=== PATIENT | male | born 1990 | race African-American/Black ===

== ENCOUNTER 2018-12-11 09:05 | Inpatient (IN) | payer OTHER ==
[2018-12-11 09:25] VITALS: BMI 27.6
--- NOTE | 2018-12-11 09:43 | HP ---
CIWA Score Nausea/Vomitin Muscle Tremors: 2 Anxiety: 3 Agitation: 3 Paroxysmal Sweats: 1-Minimal Palms Moist Orientation: 0-Oriented Tacttile Disturbances: 1-Very Mild Itch/Numbness Auditory Disturbances: 0-None Visual Disturbances: 0-None Headache: 2-Mild CIWA-Ar Total Score: 14 - Admission Criteria OASAS Guidelines: Admission for Medically Managed Detox: Requires at least one of the followin. CIWA greater than 12 2. Seizures within the past 24 hours 3. Delirium tremens within the past 24 hours 4. Hallucinations within the past 24 hours 5. Acute intervention needed for co occurring medical disorder 6. Acute intervention needed for co occurring psychiatric disorder 7. Severe withdrawal that cannot be handled at a lower level of care (continued vomiting, continued diarrhea, abnormal vital signs) requiring intravenous medication and/or fluids 8. Admission ROS S - HPI Chief Complaint: i need help to stop drinking alcohol Allergies/Adverse Reactions: Allergies Allergy/AdvReac Type Severity Reaction Status Date / Time No Known Allergies Allergy Verified 12/11/18 09:13 History of Present Illness: this 28 years old male with alcohol dependence, seeking detox,withdrawal symptom seen in [facility] last night last detox in 2017 [facility] alcohol related seizure last 2 years ago syncope non smoker bipolar disorder no significant period of sobriety plan for out patient treatment,na or aa meeting after detox - Ebola screening Have you traveled outside of the country in the last 21 days: No (N) Have you had contact with anyone from an Ebola affected area: No Do you have a fever: No - Review of Systems Constitutional: Loss of Appetite, Night Sweats, Changes in sleep, Weakness EENT: reports: Nose Congestion Respiratory: reports: No Symptoms reported Cardiac: reports: No Symptoms Reported GI: reports: Nausea, Abdominal cramping : reports: No Symptoms Reported Musculoskeletal: reports: Back Pain, Muscle Pain Integumentary: reports: Dryness Neuro: reports: Headache, Tremors Endocrine: reports: No Symptoms Reported Hematology: reports: No Symptoms Reported Psychiatric: reports: No Sypmtoms Reported, Judgement Intact, Mood/Affect Appropiate, Orientated x3, other (bipolar disorder) Patient History - Patient Medical History Hx Anemia: No Hx Asthma: No Hx Chronic Obstructive Pulmonary Disease (COPD): No Hx Cancer: No Hx Cardiac Disorders: No Hx Congestive Heart Failure: No Hx Hypertension: No Hx Hypercholesterolemia: No Hx Pacemaker: No HX Cerebrovascular Accident: No Hx Seizures: Yes (last 2016) Hx Dementia: No Hx Diabetes: No Hx Gastrointestinal Disorders: No Hx Liver Disease: No Hx Genitourinary Disorders: No Hx Sexually Transmitted Disorders: No Hx Renal Disease (ESRD): No Hx Thyroid Disease: No Hx Human Immunodeficiency Virus (HIV): No (never been tested,would like to have test done) Hx Hepatitis C: No Hx Depression: No Hx Suicide Attempt: Yes (drinke bleach at age [age] years old) Hx Bipolar Disorder: Yes (on med) Hx Schizophrenia: No Other Medical History: no suicidal,no homicidal - Patient Surgical History Hx Abdominal Surgery: Yes (umbilical hernia at childhood) - PPD History Previous Implant?: Yes Documented Results: Negative w/o proof Implanted On Prior R Admission?: No PPD to be Administered?: No - Smoking Cessation Smoking history: Never smoked - Substance & Tx. History Hx Alcohol Use: Yes Substance Use Type: Alcohol Hx Substance Use Treatment: Yes ([facility]) - Substances abused Alcohol Substance route: Oral Frequency: Daily Amount used: 1 PINT [employer] [place] VODKA Age of first use: 12 Date of last use: 12/10/18 Family Disease History - Family Disease History Family History: Denies Admission Physical Exam S - Vital Signs Vital Signs: Vital Signs - 24 hr 12/11/18 09:17 Temperature 97.6 F Pulse Rate 66 Respiratory 17 Rate Blood Pressure 133/89 - Physical General Appearance: Yes: Moderate Distress, Tremorous, Irritable, Sweating, Anxious HEENTM: Yes: Normal ENT Inspection, JAN, Pharynx Normal Respiratory: Yes: Lungs Clear, Normal Breath Sounds, No Respiratory Distress Neck: Yes: Within Normal Limits, Supple, Trachea in good position Breast: Yes: Within Normal Limits Cardiology: Yes: Within Normal Limits, Regular Rhythm, Regular Rate, S1, S2 Abdominal: Yes: Within Normal Limits, Normal Bowel Sounds, Non Tender, Flat, Soft, Surgical Scar (history of umbilical hernia repair) Genitourinary: Yes: Within Normal Limits Back: Yes: Muscle Spasm Musculoskeletal: Yes: Back pain, Muscle Pain Extremities: Yes: Tremors 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: 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: 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, Fully Oriented, Alert, Motor Strength 5/5 Integumentary: Yes: Within Normal Limits, Dry Lymphatic: Yes: Within Normal Limits - Diagnostic (1) Alcohol dependence with uncomplicated withdrawal Current Visit: Yes Status: Acute (2) Alcohol related seizure Current Visit: Yes Status: Resolved (3) Syncope Current Visit: Yes Status: Acute (4) Bipolar disorder Current Visit: Yes Status: Chronic Cleared for Admission [facility] - Detox or Rehab [facility] Level of Care: Medically Managed Detox Regimen/Protocol: Librium Inpatient Rehab Admission - Rehab Decision to Admit Inpatient rehab admission?: No
[2018-12-11] MEDS ORDERED: MAG HYDROX/AL HYDROX/SIMETH 30 ML UNIT-DOSE CUP PO PRN (09:55)
[2018-12-11] MEDS ORDERED: ACETAMINOPHEN 325 MG TABLET (FP) PO PRN ×2 (09:55)
[2018-12-11] MEDS ORDERED: hydrOXYzine PAMOATE 25 MG CAPSULE (FP) PO PRN (09:55)
[2018-12-11] MEDS ORDERED: chlordiazePOXIDE HCL 25 MG CAPSULE PO PRN (09:55)
[2018-12-11] MEDS ORDERED: IBUPROFEN 400 MG TABLET (FP) PO PRN (09:55)
[2018-12-11] MEDS ORDERED: BISMUTH SUBSALICYLATE 524 MG/30 ML UD PO PRN (09:55)
[2018-12-11] MEDS ORDERED: MAGNESIUM CITRATE 300 ML BOTTLE PO PRN (10:46)
[2018-12-11] MEDS ORDERED: MENTHOL/PHENOL 1 EACH UD MM PRN (10:46)
[2018-12-11] MEDS ORDERED: METHOCARBAMOL 500 MG TABLET PO PRN (10:46)
[2018-12-11] MEDS ORDERED: MAGNESIUM HYDROX 2400MG/30ML ORAL SUSPENSION 30 ML CUP PO PRN (10:46)
[2018-12-11] MEDS: PRENATAL VITAMINS W/ FOLIC ACID TABLET (FP) PO SCH (11:30)
[2018-12-11] MEDS: chlordiazePOXIDE HCL 25 MG CAPSULE PO SCH ×2 (17:23→22:16)
[2018-12-11] MEDS: MELATONIN 5 MG TABLETS PO PRN (22:16)
[2018-12-11] MEDS: THIAMINE HCL 100 MG TABLET (FP) PO SCH (22:17)
[2018-12-12] MEDS: chlordiazePOXIDE HCL 25 MG CAPSULE PO SCH ×4 (06:25→22:07)
--- NOTE | 2018-12-12 09:08 | EKG ---
Test Reason : Blood Pressure : / mmHG Vent. Rate : 051 BPM Atrial Rate : 051 BPM P-R Int : 194 ms QRS Dur : 106 ms QT Int : 406 ms P-R-T Axes : 066 076 070 degrees QTc Int : 374 ms SINUS BRADYCARDIA WITH PREMATURE ATRIAL COMPLEXES ST ELEVATION, CONSIDER EARLY REPOLARIZATION, PERICARDITIS, OR INJURY ABNORMAL ECG NO PREVIOUS ECGS AVAILABLE Confirmed by COREY SON, YUDI ([id number]) on 12/12/2018 9:07:57 AM Referred By: Bree Villatoro Confirmed By:YUDI NICOLE MD
[2018-12-12 09:47] LABS: ALBUMIN 3.4 g/dl (3.4-5.0); BILIRUBIN,TOTAL 0.3 mg/dL (0.2-1); BLOOD UREA NITROGEN 11.8 mg/dL (7-18); CREATININE 0.7 mg/dL (0.55-1.3); POTASSIUM 4.5 mmol/L (3.5-5.1); TOT PROT 7.2 g/dl (6.4-8.2)
--- NOTE | 2018-12-12 09:50 | CONSULT ---
[facility] Psychiatric Consult - Data Date of interview: 12/12/18 Admission source: [facility] Identifying data: Mr Ramirez is a 28 years old single Black male, unemployed receiving SSI, living with family seeking detox treatment for alcohol Substance Abuse History: Reports history of alcohol use. Refer to addiction counselor's summary for further information Medical History: Significant for alcoho related seizure. Psychiatric History: Reports that his first psychiatric contact was at age 16 when [facility] by drinking bleach. Reports that he was diagnosed with Bipolar Disorder and prescribed medications. Reports a few subsequent admissions to [facility] and most recently to [facility] from 11/21/18 to . He was discharged on Depakote 500 mg/bid and Cogentin 1 mg/bid. Claims that he was administered Haldol Decanoate injection while there but does not know the strengh. According to sister whom caption writer contacted with patient's consent( [phone], he receives outpatient psychiatric treatment at [facility] and he gets Haldol Decanoate injection there. 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 Reports several suicidal attempts. At present, denies experiencing psychotic, manic or depressive symptoms, S/H ideations. Physical/Sexual Abuse/Trauma History: Denies history of emotional, physical or sexual abuse as well as DV relationship. Additional Comment: Denies criminal history Mental Status Exam - Mental Status Exam Alert and Oriented to: Time, Place, Person Cognitive Function: Fair Patient Appearance: Disheveled Mood: Hopeful, Euthymic Patient Behavior: Cooperative Speech Pattern: Clear Voice Loudness: Normal Thought Process: Intact, Goal Oriented Hallucinations: Denies Suicidal Ideation: Denies Homicidal Ideation: Denies Insight/Judgement: Poor Sleep: Well Appetite: Good Muscle strength/Tone: Normal Gait/Station: Normal Psychiatric Findings - Problem List ([place] 1, 2,3) (1) Bipolar disorder Current Visit: Yes Status: Chronic (2) Intellectual disability Current Visit: Yes Status: Chronic (3) Alcohol dependence with uncomplicated withdrawal Current Visit: Yes Status: Acute (4) Alcohol related seizure Current Visit: Yes Status: Resolved - Initial Treatment Plan Initial Treatment Plan: 1) Continue Depakote 500 mg po BID and Cogentin 1 mg po BID. 2) Continue inpatient detoxification
[2018-12-12 09:53] LABS: HEMATOCRIT 43.6 % (35.4-49); HEMOGLOBIN 14.4 GM/dL (11.7-16.9); MCH 30.8 pg (25.7-33.7); MEAN CELL VOLUME 93.5 fl (80-96); MEAN PLT VOLUME 7.7 fl (7.5-11.1); PLATELET COUNT 282 K/MM3 (134-434); RBC 4.66 M/mm3 (4.00-5.60); RDW 13.6 % (11.9-15.9); WHITE BLOOD COUNT 4.5 K/mm3 (4.0-10.0)
[2018-12-12] MEDS: PRENATAL VITAMINS W/ FOLIC ACID TABLET (FP) PO SCH (10:14)
[2018-12-12 10:20] LABS: SICKLE CELL SCREEN NEGATIVE (NEGATIVE)
--- NOTE | 2018-12-12 12:46 | PN ---
S CIWA - CIWA Score Nausea/Vomitin-Mild Nausea/No Vomiting Muscle Tremors: 4-Moderate,w/Arms Extend Anxiety: 2 Agitation: 3 Paroxysmal Sweats: 1-Minimal Palms Moist Orientation: 0-Oriented Tacttile Disturbances: 0-None Auditory Disturbances: 0-None Visual Disturbances: 0-None Headache: 1-Very Mild CIWA-Ar Total Score: 12 BHS Progress Note (SOAP) Subjective: 28 years old male admitted on 12/11/18 for alcohol withdrawal sx management doing well with libirum detox regimen seen by psychiatrist tiffanie andrade feeling tired resting on bed Objective: 12/12/18 12:44 Vital Signs Temperature 97.7 F 12/12/18 09:12 Pulse Rate 93 H 12/12/18 09:12 Respiratory Rate 18 12/12/18 09:12 Blood Pressure 128/92 12/12/18 09:12 O2 Sat by Pulse Oximetry (%) Laboratory Last Values WBC 4.5 K/mm3 (4.0-10.0) 12/12/18 07:30 RBC 4.66 M/mm3 (4.00-5.60) 12/12/18 07:30 Hgb 14.4 GM/dL (11.7-16.9) 12/12/18 07:30 Hct 43.6 % (35.4-49) 12/12/18 07:30 MCV 93.5 fl (80-96) 12/12/18 07:30 MCH 30.8 pg (25.7-33.7) 12/12/18 07:30 MCHC 33.0 g/dl (32.0-35.9) 12/12/18 07:30 RDW 13.6 % (11.9-15.9) 12/12/18 07:30 Plt Count 282 K/MM3 (134-434) 12/12/18 07:30 MPV 7.7 fl (7.5-11.1) 12/12/18 07:30 Sickle Cell Screen Negative (NEGATIVE) 12/12/18 07:30 Sodium 139 mmol/L (136-145) 12/12/18 07:30 Potassium 4.5 mmol/L (3.5-5.1) 12/12/18 07:30 Chloride 106 mmol/L (98-107) 12/12/18 07:30 Carbon Dioxide 28 mmol/L (21-32) 12/12/18 07:30 Anion Gap 5 MMOL/L (8-16) L 12/12/18 07:30 BUN 11.8 mg/dL (7-18) 12/12/18 07:30 Creatinine 0.7 mg/dL (0.55-1.3) 12/12/18 07:30 Est GFR (CKD-EPI)AfAm 146.77 12/12/18 07:30 Est GFR (CKD-EPI)NonAf 126.64 12/12/18 07:30 Random Glucose 78 mg/dL (74-106) 12/12/18 07:30 Calcium 9.0 mg/dL (8.5-10.1) 12/12/18 07:30 Total Bilirubin 0.3 mg/dL (0.2-1) 12/12/18 07:30 AST 17 U/L (15-37) 12/12/18 07:30 ALT 20 U/L (13-61) 12/12/18 07:30 Alkaline Phosphatase 69 U/L (45-117) 12/12/18 07:30 Total Protein 7.2 g/dl (6.4-8.2) 12/12/18 07:30 Albumin 3.4 g/dl (3.4-5.0) 12/12/18 07:30 RPR Titer Nonreactive (NONREACTIVE) 12/12/18 07:30 HIV 1&2 Antibody Screen Cancelled 12/12/18 07:30 HIV P24 Antigen Cancelled 12/12/18 07:30 lab noted Assessment: 12/12/18 12:45 alcohol withdrawal sx alert oriented x 3 Plan: continue librium detox regimen
[2018-12-12 19:32] LABS: URINE APPEARANCE CLEAR; URINE BILIRUBIN NEGATIVE (NEGATIVE); URINE COLOR YELLOW; URINE GLUCOSE (UA) NEGATIVE (NEGATIVE); URINE KETONE NEGATIVE (NEGATIVE); URINE LEUK ESTERASE NEGATIVE (NEGATIVE); URINE NITRITE NEGATIVE (NEGATIVE); URINE PROTEIN NEGATIVE (NEGATIVE); URINE UROBILINOGEN 0.2 mg/dL (0.2-1.0)
[2018-12-12] MEDS: THIAMINE HCL 100 MG TABLET (FP) PO SCH (22:07)
[2018-12-12] MEDS: MELATONIN 5 MG TABLETS PO PRN (22:08)
[2018-12-13] MEDS: chlordiazePOXIDE HCL 25 MG CAPSULE PO SCH ×4 (05:37→22:13)
[2018-12-13] MEDS: PRENATAL VITAMINS W/ FOLIC ACID TABLET (FP) PO SCH (10:18)
--- NOTE | 2018-12-13 13:32 | PN ---
[facility] CIWA - CIWA Score Nausea/Vomitin-No Nausea/No Vomiting Muscle Tremors: 2 Anxiety: 3 Agitation: 2 Paroxysmal Sweats: 2 Orientation: 0-Oriented Tacttile Disturbances: 0-None Auditory Disturbances: 0-None Visual Disturbances: 0-None Headache: 0-None Present CIWA-Ar Total Score: 9 S Progress Note (SOAP) Subjective: 28 years old male 1st patient [facility] admission was admitted on 12/11/18 for alcohol withdrawal sx management doing well with librium detox regimen speech clearly ambulating steady gait Objective: 12/13/18 13:34 Vital Signs Temperature 97.2 F L 12/13/18 13:28 Pulse Rate 86 12/13/18 13:28 Respiratory Rate 18 12/13/18 13:28 Blood Pressure 106/77 12/13/18 13:28 O2 Sat by Pulse Oximetry (%) Laboratory Last Values WBC 4.5 K/mm3 (4.0-10.0) 12/12/18 07:30 RBC 4.66 M/mm3 (4.00-5.60) 12/12/18 07:30 Hgb 14.4 GM/dL (11.7-16.9) 12/12/18 07:30 Hct 43.6 % (35.4-49) 12/12/18 07:30 MCV 93.5 fl (80-96) 12/12/18 07:30 MCH 30.8 pg (25.7-33.7) 12/12/18 07:30 MCHC 33.0 g/dl (32.0-35.9) 12/12/18 07:30 RDW 13.6 % (11.9-15.9) 12/12/18 07:30 Plt Count 282 K/MM3 (134-434) 12/12/18 07:30 MPV 7.7 fl (7.5-11.1) 12/12/18 07:30 Sickle Cell Screen Negative (NEGATIVE) 12/12/18 07:30 Sodium 139 mmol/L (136-145) 12/12/18 07:30 Potassium 4.5 mmol/L (3.5-5.1) 12/12/18 07:30 Chloride 106 mmol/L (98-107) 12/12/18 07:30 Carbon Dioxide 28 mmol/L (21-32) 12/12/18 07:30 Anion Gap 5 MMOL/L (8-16) L 12/12/18 07:30 BUN 11.8 mg/dL (7-18) 12/12/18 07:30 Creatinine 0.7 mg/dL (0.55-1.3) 12/12/18 07:30 Est GFR (CKD-EPI)AfAm 146.77 12/12/18 07:30 Est GFR (CKD-EPI)NonAf 126.64 12/12/18 07:30 Random Glucose 78 mg/dL (74-106) 12/12/18 07:30 Calcium 9.0 mg/dL (8.5-10.1) 12/12/18 07:30 Total Bilirubin 0.3 mg/dL (0.2-1) 12/12/18 07:30 AST 17 U/L (15-37) 12/12/18 07:30 ALT 20 U/L (13-61) 12/12/18 07:30 Alkaline Phosphatase 69 U/L (45-117) 12/12/18 07:30 Total Protein 7.2 g/dl (6.4-8.2) 12/12/18 07:30 Albumin 3.4 g/dl (3.4-5.0) 12/12/18 07:30 Urine Color Yellow 12/12/18 08:28 Urine Appearance Clear 12/12/18 08:28 Urine pH 6.0 (5.0-8.0) 12/12/18 08:28 Ur Specific [place] 1.007 (1.010-1.035) L 12/12/18 08:28 Urine Protein Negative (NEGATIVE) 12/12/18 08:28 Urine Glucose (UA) Negative (NEGATIVE) 12/12/18 08:28 Urine Ketones Negative (NEGATIVE) 12/12/18 08:28 Urine Blood Negative (NEGATIVE) 12/12/18 08:28 Urine Nitrite Negative (NEGATIVE) 12/12/18 08:28 Urine Bilirubin Negative (NEGATIVE) 12/12/18 08:28 Urine Urobilinogen 0.2 mg/dL (0.2-1.0) 12/12/18 08:28 Ur Leukocyte Esterase Negative (NEGATIVE) 12/12/18 08:28 RPR Titer Nonreactive (NONREACTIVE) 12/12/18 07:30 HIV 1&2 Antibody Screen Cancelled 12/12/18 07:30 HIV P24 Antigen Cancelled 12/12/18 07:30 lab noted Assessment: 12/13/18 13:35 alcohol withdrawal sx 12/13/18 13:40 premature atrial complex repeat ekg on 12/15/18 12/13/18 13:41 no comparison negative urine toxicity upon admission Plan: continue librum detox regimen
[2018-12-13] MEDS: DIVALPROEX SODIUM 500 MG TABLET E.C. PO SCH (22:12)
[2018-12-13] MEDS: BENZTROPINE MESYLATE 1 MG TABLET (FP) PO SCH (22:12)
[2018-12-13] MEDS: THIAMINE HCL 100 MG TABLET (FP) PO SCH (22:12)
[2018-12-13] MEDS: MELATONIN 5 MG TABLETS PO PRN (22:13)
[2018-12-14] MEDS ORDERED: chlordiazePOXIDE HCL 10 MG CAPSULE PO PRN
[2018-12-14] MEDS: chlordiazePOXIDE HCL 10 MG CAPSULE PO SCH ×4 (05:39→22:18)
[2018-12-14] MEDS: DIVALPROEX SODIUM 500 MG TABLET E.C. PO SCH ×2 (10:23→22:18)
[2018-12-14] MEDS: PRENATAL VITAMINS W/ FOLIC ACID TABLET (FP) PO SCH (10:23)
[2018-12-14] MEDS: BENZTROPINE MESYLATE 1 MG TABLET (FP) PO SCH ×2 (10:23→22:18)
--- NOTE | 2018-12-14 10:32 | PN ---
S CIWA - CIWA Score Nausea/Vomitin-No Nausea/No Vomiting Muscle Tremors: 2 Anxiety: 2 Agitation: 2 Paroxysmal Sweats: No Perspiration Orientation: 0-Oriented Tacttile Disturbances: 0-None Auditory Disturbances: 0-None Visual Disturbances: 0-None Headache: 0-None Present CIWA-Ar Total Score: 6 S Progress Note (SOAP) Subjective: doing well with librium detox regimen ambulating on hallway social with peers in day room discuss aftercare with staff prefers [facility] for alcohol sobriety recovery Objective: 12/14/18 10:32 Vital Signs Temperature 98.3 F 12/14/18 09:07 Pulse Rate 73 12/14/18 09:07 Respiratory Rate 18 12/14/18 09:07 Blood Pressure 114/76 12/14/18 09:07 O2 Sat by Pulse Oximetry (%) Laboratory Last Values WBC 4.5 K/mm3 (4.0-10.0) 12/12/18 07:30 RBC 4.66 M/mm3 (4.00-5.60) 12/12/18 07:30 Hgb 14.4 GM/dL (11.7-16.9) 12/12/18 07:30 Hct 43.6 % (35.4-49) 12/12/18 07:30 MCV 93.5 fl (80-96) 12/12/18 07:30 MCH 30.8 pg (25.7-33.7) 12/12/18 07:30 MCHC 33.0 g/dl (32.0-35.9) 12/12/18 07:30 RDW 13.6 % (11.9-15.9) 12/12/18 07:30 Plt Count 282 K/MM3 (134-434) 12/12/18 07:30 MPV 7.7 fl (7.5-11.1) 12/12/18 07:30 Sickle Cell Screen Negative (NEGATIVE) 12/12/18 07:30 Sodium 139 mmol/L (136-145) 12/12/18 07:30 Potassium 4.5 mmol/L (3.5-5.1) 12/12/18 07:30 Chloride 106 mmol/L (98-107) 12/12/18 07:30 Carbon Dioxide 28 mmol/L (21-32) 12/12/18 07:30 Anion Gap 5 MMOL/L (8-16) L 12/12/18 07:30 BUN 11.8 mg/dL (7-18) 12/12/18 07:30 Creatinine 0.7 mg/dL (0.55-1.3) 12/12/18 07:30 Est GFR (CKD-EPI)AfAm 146.77 12/12/18 07:30 Est GFR (CKD-EPI)NonAf 126.64 12/12/18 07:30 Random Glucose 78 mg/dL (74-106) 12/12/18 07:30 Calcium 9.0 mg/dL (8.5-10.1) 12/12/18 07:30 Total Bilirubin 0.3 mg/dL (0.2-1) 12/12/18 07:30 AST 17 U/L (15-37) 12/12/18 07:30 ALT 20 U/L (13-61) 12/12/18 07:30 Alkaline Phosphatase 69 U/L (45-117) 12/12/18 07:30 Total Protein 7.2 g/dl (6.4-8.2) 12/12/18 07:30 Albumin 3.4 g/dl (3.4-5.0) 12/12/18 07:30 Urine Color Yellow 12/12/18 08:28 Urine Appearance Clear 12/12/18 08:28 Urine pH 6.0 (5.0-8.0) 12/12/18 08:28 Ur Specific [place] 1.007 (1.010-1.035) L 12/12/18 08:28 Urine Protein Negative (NEGATIVE) 12/12/18 08:28 Urine Glucose (UA) Negative (NEGATIVE) 12/12/18 08:28 Urine Ketones Negative (NEGATIVE) 12/12/18 08:28 Urine Blood Negative (NEGATIVE) 12/12/18 08:28 Urine Nitrite Negative (NEGATIVE) 12/12/18 08:28 Urine Bilirubin Negative (NEGATIVE) 12/12/18 08:28 Urine Urobilinogen 0.2 mg/dL (0.2-1.0) 12/12/18 08:28 Ur Leukocyte Esterase Negative (NEGATIVE) 12/12/18 08:28 RPR Titer Nonreactive (NONREACTIVE) 12/12/18 07:30 HIV 1&2 Antibody Screen Cancelled 12/12/18 07:30 HIV P24 Antigen Cancelled 12/12/18 07:30 lab noted Assessment: 12/14/18 10:33 alcohol withdrawal sx alert oriented x 3 12/14/18 10:33 no chest pain no shortness of breath no dizziness asymptomatic premature atrial beats apical pulse 73 above bradycardia region Vital Signs Temperature 98.3 F 12/14/18 09:07 Pulse Rate 73 12/14/18 09:07 Respiratory Rate 18 12/14/18 09:07 Blood Pressure 114/76 12/14/18 09:07 O2 Sat by Pulse Oximetry (%) 12/14/18 10:35 Plan: continue librium detox regimen
[2018-12-14] MEDS: MELATONIN 5 MG TABLETS PO PRN (22:18)
[2018-12-14] MEDS: THIAMINE HCL 100 MG TABLET (FP) PO SCH (22:18)
[2018-12-15] MEDS: chlordiazePOXIDE HCL 10 MG CAPSULE PO SCH ×2 (04:58→17:15)
[2018-12-15] MEDS: BENZTROPINE MESYLATE 1 MG TABLET (FP) PO SCH ×2 (10:10→22:19)
[2018-12-15] MEDS: DIVALPROEX SODIUM 500 MG TABLET E.C. PO SCH ×2 (10:10→22:19)
[2018-12-15] MEDS: PRENATAL VITAMINS W/ FOLIC ACID TABLET (FP) PO SCH (10:10)
--- NOTE | 2018-12-15 12:29 | EKG ---
Test Reason : Blood Pressure : / mmHG Vent. Rate : 075 BPM Atrial Rate : 075 BPM P-R Int : 184 ms QRS Dur : 098 ms QT Int : 360 ms P-R-T Axes : 058 068 058 degrees QTc Int : 402 ms NORMAL SINUS RHYTHM ST ELEVATION, CONSIDER EARLY REPOLARIZATION, PERICARDITIS, OR INJURY ABNORMAL ECG Confirmed by KEREN SON, MARY ([id number]) on 12/15/2018 12:29:23 PM Referred By: Bree Villatoro Confirmed By:MARY VELIZ MD
--- NOTE | 2018-12-15 16:16 | PN ---
S CIWA - CIWA Score Nausea/Vomitin-No Nausea/No Vomiting Muscle Tremors: 2 Anxiety: 2 Agitation: 3 Paroxysmal Sweats: No Perspiration Orientation: 0-Oriented Tacttile Disturbances: 0-None Auditory Disturbances: 0-None Visual Disturbances: 0-None Headache: 0-None Present CIWA-Ar Total Score: 7 BHS Progress Note (SOAP) Subjective: Anxious, Restless, Tremors (Mild). Objective: PATIENT A & O X 3, OBSERVED AMBULATING ON UNIT UNASSISTED. IN NO ACUTE DISTRESS. 12/15/18 16:11 Vital Signs Temperature 96.5 F L 12/15/18 13:43 Pulse Rate 79 12/15/18 13:43 Respiratory Rate 18 12/15/18 13:43 Blood Pressure 128/83 12/15/18 13:43 O2 Sat by Pulse Oximetry (%) Laboratory Tests 12/12/18 12/12/18 12/12/18 07:30 07:30 07:30 WBC 4.5 RBC 4.66 Hgb 14.4 Hct 43.6 MCV 93.5 MCH 30.8 MCHC 33.0 RDW 13.6 Plt Count 282 MPV 7.7 Sickle Cell Screen Negative Sodium 139 Potassium 4.5 Chloride 106 Carbon Dioxide 28 Anion Gap 5 L BUN 11.8 Creatinine 0.7 Est GFR (CKD-EPI)AfAm 146.77 Est GFR (CKD-EPI)NonAf 126.64 Random Glucose 78 Calcium 9.0 Total Bilirubin 0.3 AST 17 ALT 20 Alkaline Phosphatase 69 Total Protein 7.2 Albumin 3.4 Urine Color Urine Appearance Urine pH Ur Specific [place] Urine Protein Urine Glucose (UA) Urine Ketones Urine Blood Urine Nitrite Urine Bilirubin Urine Urobilinogen Ur Leukocyte Esterase RPR Titer Nonreactive HIV 1&2 Antibody Screen HIV P24 Antigen TB (QFT) Incubation TB Test (QFT) Nil TB Test (QFT) Mitogen TB Test (QFT) Antigen TB Test (QFT) TB Positive Criteria 12/12/18 12/12/18 12/12/18 07:30 07:30 08:28 WBC RBC Hgb Hct MCV MCH MCHC RDW Plt Count MPV Sickle Cell Screen Sodium Potassium Chloride Carbon Dioxide Anion Gap BUN Creatinine Est GFR (CKD-EPI)AfAm Est GFR (CKD-EPI)NonAf Random Glucose Calcium Total Bilirubin AST ALT Alkaline Phosphatase Total Protein Albumin Urine Color Yellow Urine Appearance Clear Urine pH 6.0 Ur Specific [place] 1.007 L Urine Protein Negative Urine Glucose (UA) Negative Urine Ketones Negative Urine Blood Negative Urine Nitrite Negative Urine Bilirubin Negative Urine Urobilinogen 0.2 Ur Leukocyte Esterase Negative RPR Titer HIV 1&2 Antibody Screen Cancelled HIV P24 Antigen Cancelled TB (QFT) Incubation TB Test (QFT) Nil 0.19 TB Test (QFT) Mitogen >10.00 TB Test (QFT) Antigen 0.20 TB Test (QFT) Negative TB Positive Criteria LABS NOTED. DETOX ADMISSION HIV AB RESULT PENDING. 12/15/18 16:12 Assessment: 12/15/18 16:11 WITHDRAWAL SYMPTOMS. Plan: CONTINUE DETOX. PATIENT SCHEDULED FROM DISCHARGE FROM DETOX UNIT TOMORROW AM. RESULTS OF DETOX ADMISSION AND REPEAT ECG (AFTER VERIFICATION BY BASKET PERSON) NOTED. PATIENT DENIES KNOWN HISTORY OF CARDIOVASCULAR DISORDER. PATIENT DENIES CHEST / LEFT ARM PAIN, DIZZINESS, AND SOB AT THIS TIME. PATIENT ADVISED TO FOLLOW-UP WITH SECURITY MONITOR SOON POSSIBLE AFTER DISCHARGE FROM DETOX FOR GENERAL MEDICAL ASSESSMENT AND FOR DETOX ADMISSION AND REPEAT ECG ABNORMALITIES NOTED WHILE PATIENT WAS ADMITTED FOR DETOX. PATIENT VERBALIZED UNDERSTANDING OF RECOMMENDATION.
[2018-12-15] MEDS: THIAMINE HCL 100 MG TABLET (FP) PO SCH (22:19)
[2018-12-15] MEDS: MELATONIN 5 MG TABLETS PO PRN (22:19)
[2018-12-16] MEDS ORDERED: chlordiazePOXIDE HCL 10 MG CAPSULE PO ONE (05:00)
[2018-12-16] MEDS: BENZTROPINE MESYLATE 1 MG TABLET (FP) PO SCH (10:29)
[2018-12-16] MEDS: PRENATAL VITAMINS W/ FOLIC ACID TABLET (FP) PO SCH (10:29)
[2018-12-16] MEDS: DIVALPROEX SODIUM 500 MG TABLET E.C. PO SCH (10:29)
[2018-12-16 13:38] VITALS: BP 133/85; PULSE 66; TEMP 97.6
--- NOTE | 2018-12-16 15:06 | DS ---
[facility] Detox Discharge Summary Admission Date: 12/11/18 Discharge Date: 12/16/18 - History Present History: Alcohol Dependence Additional Comments: PATIENT GOING TO [facility] ([facility] FOR AFTERCARE. PATIENT WAS DISCHARGED FROM DETOX UNIT TO BE TAKEN OVER TO REHAB UNIT IN STABLE MEDICAL CONDITION. Pertinent Past History: History Of Alcohol-Related Seizure, History Of Syncope, History Of Bipolar Disorder. - Physical Exam Results Vital Signs: Vital Signs Temperature 97.6 F 12/16/18 13:37 Pulse Rate 66 12/16/18 13:37 Respiratory Rate 16 12/16/18 13:37 Blood Pressure 133/85 12/16/18 13:37 O2 Sat by Pulse Oximetry (%) Pertinent Admission Physical Exam Findings: WITHDRAWAL SYMPTOMS. Laboratory Tests 12/12/18 12/12/18 12/12/18 07:30 07:30 07:30 WBC 4.5 RBC 4.66 Hgb 14.4 Hct 43.6 MCV 93.5 MCH 30.8 MCHC 33.0 RDW 13.6 Plt Count 282 MPV 7.7 Sickle Cell Screen Negative Sodium 139 Potassium 4.5 Chloride 106 Carbon Dioxide 28 Anion Gap 5 L BUN 11.8 Creatinine 0.7 Est GFR (CKD-EPI)AfAm 146.77 Est GFR (CKD-EPI)NonAf 126.64 Random Glucose 78 Calcium 9.0 Total Bilirubin 0.3 AST 17 ALT 20 Alkaline Phosphatase 69 Total Protein 7.2 Albumin 3.4 Urine Color Urine Appearance Urine pH Ur Specific [place] Urine Protein Urine Glucose (UA) Urine Ketones Urine Blood Urine Nitrite Urine Bilirubin Urine Urobilinogen Ur Leukocyte Esterase RPR Titer Nonreactive HIV 1&2 Antibody Screen HIV P24 Antigen TB (QFT) Incubation TB Test (QFT) Nil TB Test (QFT) Mitogen TB Test (QFT) Antigen TB Test (QFT) TB Positive Criteria 12/12/18 12/12/18 12/12/18 07:30 07:30 08:28 WBC RBC Hgb Hct MCV MCH MCHC RDW Plt Count MPV Sickle Cell Screen Sodium Potassium Chloride Carbon Dioxide Anion Gap BUN Creatinine Est GFR (CKD-EPI)AfAm Est GFR (CKD-EPI)NonAf Random Glucose Calcium Total Bilirubin AST ALT Alkaline Phosphatase Total Protein Albumin Urine Color Yellow Urine Appearance Clear Urine pH 6.0 Ur Specific [place] 1.007 L Urine Protein Negative Urine Glucose (UA) Negative Urine Ketones Negative Urine Blood Negative Urine Nitrite Negative Urine Bilirubin Negative Urine Urobilinogen 0.2 Ur Leukocyte Esterase Negative RPR Titer HIV 1&2 Antibody Screen Cancelled HIV P24 Antigen Cancelled TB (QFT) Incubation TB Test (QFT) Nil 0.19 TB Test (QFT) Mitogen >10.00 TB Test (QFT) Antigen 0.20 TB Test (QFT) Negative TB Positive Criteria LABS NOTED. - Treatment Hospital Course: Detox Protocol Followed, Detoxed Safely, Responded well, Discharged Condition Good, Rehab Referral Accepted Patient has Accepted a Re[facility] Referral to: [facility] ([place], [place]). - Medication Discharge Medications: Ambulatory Orders Divalproex [Depakote -] 500 mg PO BID 12/11/18 - Diagnosis (1) Alcohol dependence with uncomplicated withdrawal Current Visit: Yes Status: Acute (2) Syncope Current Visit: Yes Status: Acute Qualifiers: Syncope type: unspecified Qualified Code(s): R55 - Syncope and collapse (3) Bipolar disorder Current Visit: Yes Status: Chronic Qualifiers: Active/Remission status: remission status unspecified Qualified Code(s): F31.9 - Bipolar disorder, unspecified (4) Intellectual disability Current Visit: Yes Status: Chronic (5) Alcohol related seizure Current Visit: Yes Status: Resolved - AMA Did Patient Leave Against Medical Advice: No BHS CIWA - CIWA Score Nausea/Vomitin-No Nausea/No Vomiting Muscle Tremors: None Anxiety: 0-No Anxiety, at Ease Agitation: 1-Slight > Activity Paroxysmal Sweats: No Perspiration Orientation: 0-Oriented Tacttile Disturbances: 0-None Auditory Disturbances: 0-None Visual Disturbances: 0-None Headache: 0-None Present CIWA-Ar Total Score: 1
== END 2018-12-16 15:08 | disposition other institution (70) | DRG 775 ==
LOC: YASAS 09:05 → Y3N 10:50
PROVIDERS: ADMIT Surgery; ATTEND Surgery
PROC: HZ2ZZZZ Detoxification Services for Substance Abuse Treatment (ICD-10-PCS; principal; 2018-12-11)
DX: F10.230 Alcohol dependence with withdrawal, uncomplicated (principal); F31.9 Bipolar disorder, unspecified; F79 Unspecified intellectual disabilities; R55 Syncope and collapse; Z86.69 Personal history of other diseases of the nervous system and sense organs; Z91.5 Personal history of self-harm
CPT/HCPCS: 36415; 80053; 81003; 85027; 85660; 86480; 86593; 87389; 93005; 93010

== ENCOUNTER 2018-12-16 15:13 | Inpatient (IN) | payer OTHER ==
[~2018-12-16 15:13] MED LIST: ACETAMINOPHEN 325 MG TABLET (FP) PO PRN; IBUPROFEN 400 MG TABLET (FP) PO PRN; LOPERAMIDE HCL 2 MG CAPSULE PO PRN; MAG HYDROX/AL HYDROX/SIMETH 30 ML UNIT-DOSE CUP PO PRN; MAGNESIUM CITRATE 300 ML BOTTLE PO PRN; MAGNESIUM HYDROX 2400MG/30ML ORAL SUSPENSION 30 ML CUP PO PRN; MENTHOL/PHENOL 1 EACH UD MM PRN; P-EPHED 60MG/TRIPROLIDI 2.5MG TABLET PO PRN; guaiFENesin 200 MG/10 ML 10 ML UNIT-DOSE CUPS PO PRN
--- NOTE | 2018-12-16 15:15 | HP ---
[facility] Rehab Assess/Revision - Admission History Admitted to Rehab from: [facility] Date of Admission to Rehab: 12/16/2018 - Vital signs Vital Signs: NOTED; STABLE. - Findings Detox History & Physical reviewed: Yes Concur with findings: Yes Comments/Additional Findings: PATIENT'S MEDICAL / MEDICATION HISTORY REVIEWED PRIOR TO DISCHARGE FROM DETOX UNIT. PATIENT ADVISED TO IMMEDAITELY NOTIFY NURSING / MEDICAL STAFF SHOULD HE EXPEREINCE ANY UNUSUAL SYMPTOMS, INCLUDING CHEST PAIN, SOB, OR DIZZINESS, AT ANY TIME WHILE ADMITTED FOR REHAB. PATIENT ALSO ADVISED TO FOLLOW-UP WITH [facility] AFTER DISCHARGE FROM REHAB UNIT FOR GENERAL MEDICAL ASSESSMENT AND FOR ADMISSION AND REPEAT ECG ABNHORMALITIES NOTED WHILE ADMITTED FOR DETOX. PATIENT VERBAQLIZED UNDERSTANDING OF ALL RECEOMMENDATIONS PRESENTED TO HIM. PATIENT WAS DISCHARGED FROM DETOX UNIT TO BE TAKEN OVER TO REHAB UNIT IN STABLE MEDICAL CONDITION. Inpatient Rehab Admission - Rehab Decision to Admit Inpatient rehab admission?: Yes - Initial Determination Are CD services needed?: Yes Free of communicable disease: Yes Not in need of hospitalization: Yes - Rehab Admission Criteria Previous failed treatment: Yes Poor recovery environment: Yes Comorbidities: Yes Lacks judgement: Yes Patient is meeting Inpatient Rehab admission criteria:: Yes
[2018-12-16] MEDS: MELATONIN 5 MG TABLETS PO PRN (21:28)
[2018-12-16] MEDS: THIAMINE HCL 100 MG TABLET (FP) PO SCH (21:28)
[2018-12-17] MEDS: PRENATAL VITAMINS W/ FOLIC ACID TABLET (FP) PO SCH (10:07)
[2018-12-17] MEDS: MELATONIN 5 MG TABLETS PO PRN (21:17)
[2018-12-17] MEDS: THIAMINE HCL 100 MG TABLET (FP) PO SCH (21:17)
[2018-12-18] MEDS: PRENATAL VITAMINS W/ FOLIC ACID TABLET (FP) PO SCH (10:19)
[2018-12-18] MEDS: MELATONIN 5 MG TABLETS PO PRN (21:29)
[2018-12-18] MEDS: THIAMINE HCL 100 MG TABLET (FP) PO SCH (21:29)
--- NOTE | 2018-12-19 07:47 | CONSULT ---
[facility] Psychiatric Consult - Data Date of interview: 12/19/18 Admission source: 3N Identifying data: Mr Ramirez is a 28 years old single Black male, unemployed receiving SSI, living with family seeking detox treatment for alcohol Substance Abuse History: Reports history of alcohol use. Refer to addiction counselor's summary for further information Medical History: Significant for alcoho related seizure. Psychiatric History: Patient was seen by conventional underwriter on 12/12/18 while admitted to detox. Historical narrative remains consistent. Reports that his first psychiatric contact was at age 16 when he was admitted to [facility] for suicidal attempt by drinking bleach. Reports that he was diagnosed with Bipolar Disorder and prescribed medications. Reports a few subsequent admissions to [facility] and most recently to [facility] from 11/21/18 to 11/29/18. He was discharged on Depakote 500 mg/bid and Cogentin 1 mg/bid. Claims that he was administered Haldol Decanoate injection while there but does not know the strengh. According to sister whom conventional underwriter contacted with patient's [phone], he receives outpatient psychiatric treatment at [facility] and he gets Haldol Decanoate injection there. [employer] Teacher called [facility] and talked to Dr [phone] who informed that patient received Haldol Decanoate 100 mg IM on 11/28/18. When seen by luis carlos in detox, he was continued on Depakote 500 mg/bid and Cogentin 1 mg/ bid. 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 Reports several suicidal attempts. At present, denies experiencing psychotic, manic or depressive symptoms, S/H ideations. Physical/Sexual Abuse/Trauma History: Denies history of emotional, physical or sexual abuse as well as DV relationship. Additional Comment: Denies criminal history Psychiatric Findings - Problem List ([place] 1, 2,3) (1) Schizoaffective disorder, bipolar type Current Visit: Yes Status: Chronic (2) Intellectual disability Current Visit: No Status: Chronic (3) Alcohol dependence Current Visit: Yes Status: Acute (4) Alcohol related seizure Current Visit: No Status: Resolved - Initial Treatment Plan Initial Treatment Plan: 1) Continue Depakote 500 mg po BID and Cogentin 1 mg po BID. 2) Haldol Decanoate to be administered on 12/25/18. 3) Continue inpatient rehabilitation
[2018-12-19] MEDS: PRENATAL VITAMINS W/ FOLIC ACID TABLET (FP) PO SCH (10:40)
[2018-12-19] MEDS: DIVALPROEX SODIUM 500 MG TABLET E.C. PO SCH ×2 (10:40→21:29)
[2018-12-19] MEDS: BENZTROPINE MESYLATE 1 MG TABLET (FP) PO SCH ×2 (10:40→21:29)
[2018-12-19] MEDS: MELATONIN 5 MG TABLETS PO PRN (21:29)
[2018-12-19] MEDS: THIAMINE HCL 100 MG TABLET (FP) PO SCH (21:29)
[2018-12-20] MEDS: BENZTROPINE MESYLATE 1 MG TABLET (FP) PO SCH ×2 (10:24→21:40)
[2018-12-20] MEDS: DIVALPROEX SODIUM 500 MG TABLET E.C. PO SCH ×2 (10:24→21:40)
[2018-12-20] MEDS: PRENATAL VITAMINS W/ FOLIC ACID TABLET (FP) PO SCH (10:24)
[2018-12-20] MEDS: MELATONIN 5 MG TABLETS PO PRN (21:40)
[2018-12-20] MEDS: THIAMINE HCL 100 MG TABLET (FP) PO SCH (21:40)
[2018-12-21] MEDS: PRENATAL VITAMINS W/ FOLIC ACID TABLET (FP) PO SCH (10:22)
[2018-12-21] MEDS: BENZTROPINE MESYLATE 1 MG TABLET (FP) PO SCH ×2 (10:22→21:31)
[2018-12-21] MEDS: DIVALPROEX SODIUM 500 MG TABLET E.C. PO SCH ×2 (10:22→21:31)
[2018-12-21] MEDS: THIAMINE HCL 100 MG TABLET (FP) PO SCH (21:30)
[2018-12-21] MEDS: MELATONIN 5 MG TABLETS PO PRN (21:31)
[2018-12-22] MEDS: BENZTROPINE MESYLATE 1 MG TABLET (FP) PO SCH ×2 (10:14→21:21)
[2018-12-22] MEDS: DIVALPROEX SODIUM 500 MG TABLET E.C. PO SCH ×2 (10:14→21:21)
[2018-12-22] MEDS: PRENATAL VITAMINS W/ FOLIC ACID TABLET (FP) PO SCH (10:14)
[2018-12-22] MEDS: MELATONIN 5 MG TABLETS PO PRN (21:21)
[2018-12-22] MEDS: THIAMINE HCL 100 MG TABLET (FP) PO SCH (21:21)
[2018-12-23 07:13] VITALS: BP 124/77; PULSE 69; TEMP 97.4
[2018-12-23] MEDS: DIVALPROEX SODIUM 500 MG TABLET E.C. PO SCH (10:02)
[2018-12-23] MEDS: BENZTROPINE MESYLATE 1 MG TABLET (FP) PO SCH (10:02)
[2018-12-23] MEDS: PRENATAL VITAMINS W/ FOLIC ACID TABLET (FP) PO SCH (10:02)
--- NOTE | 2018-12-23 15:00 | DS ---
[facility] Rehab Discharge Summary - [facility] Rehab Discharge Summary Admission Date: 12/16/18 Discharge Date: 12/23/18 - History Present History: Alcohol dependence Additional Comments: Pt requests early discharge to be with his family because "makes me happy". Pt is a 28 y/o male with a hx of alcohol use disorder admitted to rehab and discharging today. Pt met with his counselor and has been referred to [facility] for CD aftercare. Pt is connecte to [facility] for medical and psych management. Pertinent Past History: Alcohol related seizure Intellectual Disability Schizophrenia - Discharge Physical Exam Vital Signs: Vital Signs Temperature 97.4 F L 12/23/18 07:13 Pulse Rate 69 12/23/18 07:13 Respiratory Rate 18 12/23/18 07:13 Blood Pressure 124/77 12/23/18 07:13 O2 Sat by Pulse Oximetry (%) alert o x 3 nad oob ambulating with steady gait cardiac:s1 s2 Lungs:cta,hu. abdomen:soft:+bs,nt,nd ext/skin:No edema/skin intact;old healed pink scars on lower ext. LLE > right RLE Pertinent Admission Physical Exam Findings: unremarkable - Treatment Discharge Condition: Discharge condition good Hospital Course: rehabilitated safely and responded well Accepted CD aftercare recommendations. - Medication Discharge Medications: Ambulatory Orders Divalproex [Depakote -] 500 mg PO BID 12/11/18 Cogentin 12/17/18 Haldol - 12/17/18 - Medication-Assisted Treatment (MAT) Medication-Assisted Treatment (MAT): No - Discharge Instructions Diet, activity, other medical instructions: Diet:Regular Activity: OOB, ad lynn Other medical instructions:Follow up with CD aftercare at [facility] out pt program follow up with existing [facility] program for medical and psych management as scheduled. - Diagnosis (1) Alcohol dependence Current Visit: Yes Status: Chronic Qualifiers: Substance use status: uncomplicated Qualified Code(s): F10.20 - Alcohol dependence, uncomplicated (2) Intellectual disability Current Visit: Yes Status: Chronic (3) Alcohol related seizure Current Visit: Yes Status: Resolved - Follow-up Referral Minutes to complete discharge: 20 - AMA Did Patient Leave Against Medical Advice: No
[2018-12-25] MEDS ORDERED: HALOPERIDOL DECANOATE 100 MG/ML IM ONE (08:13)
== END 2018-12-23 15:15 | disposition home or self-care (01) | DRG 772 ==
LOC: YASAS 15:13 → Y5N 15:14
PROVIDERS: ADMIT Neuromusculoskeletal Medicine & OMM; ATTEND Neuromusculoskeletal Medicine & OMM
PROC: HZ42ZZZ Group Counseling for Substance Abuse Treatment, Cognitive-Behavioral (ICD-10-PCS; principal; 2018-12-16)
DX: F10.20 Alcohol dependence, uncomplicated (principal); F25.0 Schizoaffective disorder, bipolar type; F79 Unspecified intellectual disabilities; G40.509 Epileptic seizures related to external causes, not intractable, without status epilepticus

== ENCOUNTER 2022-04-10 13:06 | Emergency (ER) | payer OTHER ==
[2022-04-10 13:11] VITALS: BP 120/79; PULSE 72; RESP 18; TEMP 97.5; BMI 22.8
[2022-04-10] MEDS ORDERED: ACETAMINOPHEN 325 MG TABLET (FP) PO ONE (15:29)
[2022-04-10] MEDS ORDERED: ACETAMINOPHEN 325 MG TABLET (FP) ONE (15:30)
== END 2022-04-10 14:55 | disposition left against medical advice (07) ==
LOC: JERFT 13:06 → JER 13:06 → JERFT 14:55
DX: S90.851A Superficial foreign body, right foot, initial encounter (principal); W45.8XXA Other foreign body or object entering through skin, initial encounter
CPT/HCPCS: 99283-25